=== PATIENT | male | born 1980 | race Caucasian/White ===

== ENCOUNTER 2016-08-25 12:57 | Emergency (ER) | payer SELFPAY ==
[2016-08-25 12:58] VITALS: BMI 29.6
[2016-08-25 13:14] VITALS: TEMP 97.7; O2SAT 98
[2016-08-25] MEDS ORDERED: Sodium Chloride 0.9% 1,000 ML IV ONE (14:29)
--- NOTE | 2016-08-25 14:29 | C.PDOC ---
History Of Present Illness The patient, a 35 y/o male, presents to the ED for evaluation of epigastric abdominal pain which began earlier today. Patient states his pain radiates to his chest and describes it as a burning sensation. Patient also reports experiencing multiple episodes of vomiting this morning. As per family member at bedside, patient has been drinking heavily for the past week. Patient admits to recent alcohol intake and is requesting detox. Patient denies any other substance abuse. Otherwise, he denies shortness of breath, back pain, and suicidal/homicidal ideation at this time. Time Seen by Provider: 08/25/16 14:18 Chief Complaint (Nursing): Chest Pain History Per: Patient History/Exam Limitations: no limitations Onset/Duration Of Symptoms: Hrs Current Symptoms Are (Timing): Still Present Additional History Per: Patient Past Medical History Reviewed: Historical Data, Nursing Documentation, Vital Signs Vital Signs: Last Vital Signs Temp 97.7 F 08/25/16 13:10 Pulse 94 H 08/25/16 16:57 Resp 18 08/25/16 16:57 BP 120/79 08/25/16 16:57 Pulse Ox 98 08/25/16 17:50 - Medical History PMH: HTN Denies: Diabetes, Hepatitis, HIV, Chronic Kidney Disease, Seizures, Sexually Transmitted Disease Surgical History: No Surg Hx - [facility] Procedures DETOXIFICATION SERVICES FOR SUBSTANCE ABUSE TREATMENT (01/20/16) 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 Cardiovascular: Positive for: Chest Pain Respiratory: Negative for: Shortness of Breath Gastrointestinal: Positive for: Vomiting, Abdominal Pain (epigastric ) Musculoskeletal: Negative for: Back Pain Psych: Positive for: Other (+alcohol intake ). Negative for: Suicidal ideation Physical Exam - Physical Exam Appears: Non-toxic, No Acute Distress Skin: Normal Color, Warm, Dry Head: Atraumatic, Normacephalic Eye(s): bilateral: Normal Inspection Oral Mucosa: Moist, Other (+alcohol on breath ) Neck: Normal ROM, Supple Chest: Symmetrical, No Deformity, No Tenderness Cardiovascular: Rhythm Regular, No Murmur Respiratory: Normal Breath Sounds, No Rales, No Rhonchi, No Wheezing Gastrointestinal/Abdominal: Tenderness (mild, epigastric ), No Guarding, No Rebound Back: Normal Inspection, No Vertebral Tenderness, No Paraspinal Tenderness Extremity: Normal ROM, Capillary Refill (less than 2 seconds ) Neurological/Psych: Oriented x3, Normal Speech, Normal Cognition Gait: Steady ED Course And Treatment - Laboratory Results Result Diagrams: 08/25/16 15:00 08/25/16 15:00 ECG Rhythm: Sinus Rhythm Interpretation Of ECG: Normal Sinus Rhythm at rate 82bpm. Left axis deviation. Rate From EC O2 Sat by Pulse Oximetry: 98 (on RA) Pulse Ox Interpretation: Normal Medical Decision Making Medical Decision Makin y.o male complains of nausea, vomiting ,epigastric pain radiates to chest. Requesting alcohol detox Plan: * labs * EKG * reassess and disposition Progress: Labs and EKG were ordered and reviewed. Patient received Pepcid IV, Zofran IV, and IV fluids. Contact Laura who states there are no detox beds available. Prior records reviewed patient was seen 05/16/16 for similar complaint of chest pain and alcohol intoxication, patient was observed for 1 night, negative trending cardiac enzymes Patient remained stable and in no acute distress, no signs of withdrawal. Patient was able to tolerate po. Patient to be discharged and given outpatient information Disposition Counseled Patient/Family Regarding: Need For Followup, Rx Given - Disposition Disposition: HOME/ ROUTINE Disposition Time: 16:50 Condition: GOOD Additional Instructions: Por favor llame al [phone] o al [phone] para informarse sobre nuestra disponibilidad de Detox, puede hablar con el coordinador Laura Regrese al servicio de urgencias en cualquier momento si los sntomas persisten o empeoran. Instructions: Alcohol Intoxication (DC) Print Language: MALTESE - POA Present On Arrival: None - Clinical Impression Clinical Impression: Alcohol abuse, Alcoholic gastritis - PA / WEIGHER AND CHARGER / Resident Statement MD/DO has reviewed & agrees with the documentation as recorded. - Scribe Statement The provider has reviewed the documentation as recorded by the Scribe (Sharon Kapoor) All medical record entries made by the Scribe were at my direction and personally dictated by me. I have reviewed the chart and agree that the record accurately reflects my personal performance of the history, physical exam, medical decision making, and the department course for this patient. I have also personally directed, reviewed, and agree with the discharge instructions and disposition.
[2016-08-25] MEDS ORDERED: Sodium Chloride 0.9% 1,000 ML ONE (15:02)
[2016-08-25 15:09] LABS: BASO % 0.5 % (0.0-2.0); EOS % 0.5 % (0.0-4.0); HEMATOCRIT 46.3 % (35.0-51.0); LYMPH # 2.5 K/uL (1.0-4.3); LYMPH % 40.3 % (20.0-40.0); MEAN CELL VOLUME 91.5 fL (80.0-94.0); MEAN CORPUSCULAR HGB CONC 33.9 g/dL (33.0-37.0); MEAN PLATELET VOLUME 8.6 fL (7.2-11.7); MONO # 0.2 K/uL (0.0-0.8); MONO % 3.6 % (0.0-10.0); NRBC % 0.1 % (0.0-2.0); RED CELL DISTRIBUTION WIDTH 13.8 % (11.5-14.5); WHITE BLOOD COUNT 6.1 K/uL (4.8-10.8)
[2016-08-25 15:11] LABS: URINE BILIRUBIN NEGATIVE (NEGATIVE); URINE BLOOD NEGATIVE (NEGATIVE); URINE COLOR Yellow (YELLOW); URINE GLUCOSE (UA) NORMAL (Normal); URINE KETONE TRACE mg/dL (NEGATIVE); URINE LEUKOCYTE ESTERASE NEG Leu/uL (Negative); URINE PROTEIN NEGATIVE (NEGATIVE); URINE UROBILINOGEN NORMAL mg/dL (0.2-1.0); WBC URINE 1 /hpf (0-5)
[2016-08-25 15:18] LABS: CHLORIDE 104 mmol/L (98-107)
[2016-08-25 15:19] LABS: SODIUM 145 mmol/L (132-148)
[2016-08-25 15:20] LABS: POTASSIUM 4.3 mmol/L (3.6-5.2)
[2016-08-25 15:22] LABS: ALB/GLOB RATIO 1.5 (1.0-2.1); ALKALINE PHOSPHATASE 63 U/L (38-126); ALT/SGPT 61 U/L (21-72); AST/SGOT 66 U/L (17-59); BLOOD UREA NITROGEN 13 mg/dL (9-20); CARBON DIOXIDE 27 mmol/L (22-30); GFR AFRICAN-AMERICAN > 60; GLUCOSE,RANDOM 122 mg/dL (75-110); TOTAL PROTEIN 7.6 g/dL (6.3-8.3)
[2016-08-25 15:23] LABS: CALCIUM 8.3 mg/dl (8.6-10.4)
[2016-08-25 17:00] VITALS: BP 120/79; PULSE 94; RESP 18
--- NOTE | 2016-08-28 18:43 | CARD ---
APPROVED REPORT EKG Measurement Heart [id number] <Conclusion> Normal sinus rhythm Left axis deviation Abnormal ECG
== END 2016-08-25 16:59 | disposition home or self-care (01) ==
LOC: C.ER 12:57
DX: K29.20 Alcoholic gastritis without bleeding (principal); F10.10 Alcohol abuse, uncomplicated
CPT/HCPCS: 80053; 81001; 85025; 93005; 96361; 96374; 96375; 99285; G0480; J2405; J7040

== ENCOUNTER 2018-05-10 14:54 | Emergency (ER) | payer OTHER ==
[2018-05-10 15:09] VITALS: BMI 29.7
--- NOTE | 2018-05-10 15:44 | C.PDOC ---
History Of Present Illness 37 years old male with PMHx of alcohol abuse presents to ED for complaints of chest pain and depression. Patient has had multiple visits in this ER for similar prior complaints. Patient states he cannot characterize his pain. Denies trauma or any other complaints at this time. Patient is sleeping upon assessment but is easily arousable. Time Seen by Provider: 05/10/18 15:27 Chief Complaint (Nursing): Psychiatric Evaluation History Per: Patient History/Exam Limitations: no limitations Onset/Duration Of Symptoms: Hrs Current Symptoms Are (Timing): Still Present Suicide/Self Injury Attempted (Context): None Modifying Factor(s): Alcohol Associated Symptoms: denies: Suicidal Thoughts, Suicidal Plan Involuntary Hold By: None Recent travel outside of the [place]: No Past Medical History Reviewed: Historical Data, Nursing Documentation, Vital Signs Vital Signs: Last Vital Signs Temp 98.2 F 05/10/18 15:11 Pulse 85 05/10/18 15:11 Resp 16 05/10/18 15:11 BP 153/87 H 05/10/18 15:11 Pulse Ox 96 05/10/18 15:11 - Medical History PMH: Depression, HTN - [facility] Procedures DETOXIFICATION SERVICES FOR SUBSTANCE ABUSE TREATMENT (10/02/16) 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, PSYCHOEDUCATION (01/20/16) GROUP PSYCHOTHERAPY (09/29/15) MEDICATION MANAGEMENT (10/02/16) Family History: States: Unknown Family Hx - Social History Hx Tobacco Use: Yes Hx Alcohol Use: Yes (QUIT) Hx Substance Use: No - Immunization History Hx Tetanus Toxoid Vaccination: No Hx Influenza Vaccination: No Hx Pneumococcal Vaccination: No Review Of Systems Constitutional: Negative for: Fever, Chills Cardiovascular: Positive for: Chest Pain Gastrointestinal: Negative for: Nausea, Vomiting, Abdominal Pain, Diarrhea Neurological: Negative for: Weakness, Numbness Psych: Positive for: Depression Physical Exam - Physical Exam Appears: Non-toxic, No Acute Distress Skin: Normal Color, Warm, Dry, No Rash Head: Atraumatic, Normacephalic Eye(s): bilateral: Normal Inspection, PERRL, EOMI Oral Mucosa: Moist Neck: Normal ROM, Supple Chest: Symmetrical, No Tenderness Cardiovascular: Rhythm Regular, No Friction Rub Respiratory: Normal Breath Sounds, No Rales, No Rhonchi, No Wheezing Extremity: Normal ROM Extremity: Bilateral: Atraumatic, Normal Color And Temperature, Normal ROM Neurological/Psych: Oriented x3, Normal Speech Gait: Steady ED Course And Treatment - Laboratory Results Result Diagrams: 05/10/18 15:50 05/10/18 15:50 ECG Rhythm: Sinus Rhythm ECG Interpretation: Normal Interpretation Of ECG: Normal sinus rhythm at 74bpm. No ST/T wave changes. Rate From EC O2 Sat by Pulse Oximetry: 96 (RA) Pulse Ox Interpretation: Normal - Other Rad CXR X-Ray: Viewed By Me, Read By Radiologist Interpretation: HISTORY: chest pain. COMPARISON: Chest x-ray performed 01/19/16. TECHNIQUE: Chest PA and lateral. FINDINGS: LUNGS: No focal consolidation. Please note that chest x-ray has limited sensitivity for the detection of pulmonary masses. PLEURA: No significant pleural effusion identified. No definite pneumothorax . CARDIOVASCULAR: Heart size appears within limits. No atherosclerotic calcification present. OSSEOUS STRUCTURES: No acute osseous abnormality identified. VISUALIZED UPPER ABDOMEN: Unremarkable. OTHER FINDINGS: None. IMPRESSION: No focal consolidation. Medical Decision Making Medical Decision Making: etoh abuse. Plan: * EKG * Blood work * CXR * Urinalysis observed 7 hoursl clincally sober eating food ambulating. to take pt home. seen by crisis. requests outpt tx. Disposition - Disposition Disposition: HOME/ ROUTINE Disposition Time: 21:00 Condition: STABLE Additional Instructions: retrun to er with worsening symptoms or concerns. Instructions: Depression, Alcohol Abuse and Alcoholism (DC) Forms: [facility] (Peruvian) - Clinical Impression Clinical Impression: Chest pain, Alcohol abuse, Depression - Scribe Statement The provider has reviewed the documentation as recorded by the Rosa Nava All medical record entries made by the Lalitaibhayes were at my direction and personally dictated by me. I have reviewed the chart and agree that the record accurately reflects my personal performance of the history, physical exam, medical decision making, and the department course for this patient. I have also personally directed, reviewed, and agree with the discharge instructions and di sposition.
[2018-05-10 15:59] LABS: BASO % 0.9 % (0.0-2.0); EOS % 0.3 % (0.0-4.0); HEMOGLOBIN 15.9 g/dL (12.0-18.0); LYMPH # 1.4 K/uL (1.0-4.3); LYMPH % 29.3 % (20.0-40.0); MEAN CORPUSCULAR HGB CONC 34.2 g/dL (33.0-37.0); MEAN PLATELET VOLUME 7.9 fL (7.2-11.7); MONO # 0.3 K/uL (0.0-0.8); MONO % 6.3 % (0.0-10.0); NEUT % 63.2 % (50.0-75.0); NRBC % 0.1 % (0.0-2.0); RBC 4.53 Mil/uL (4.40-5.90); RED CELL DISTRIBUTION WIDTH 13.8 % (11.5-14.5); WHITE BLOOD COUNT 4.8 K/uL (4.8-10.8)
[2018-05-10 16:00] LABS: MEAN CELL VOLUME 102.5 fL (80.0-94.0)
[2018-05-10 16:09] LABS: INR 1.4; PROTHROMBIN TIME 15.1 SECONDS (9.7-12.2)
[2018-05-10 16:22] LABS: ALB/GLOB RATIO 1.6 (1.0-2.1); ALBUMIN 5.1 g/dL (3.5-5.0); ALT/SGPT 73 U/L (21-72); AST/SGOT 87 U/L (17-59); BLOOD UREA NITROGEN 10 mg/dL (9-20); CALCIUM 9.3 mg/dl (8.6-10.4); GFR NON-AFRICAN AMERICAN > 60
[2018-05-10 16:24] LABS: ACETAMINOPHEN < 10.0 ug/mL (10.0-30.0); SALICYLATE < 1.0 mg/dL 1
[2018-05-10 17:16] LABS: BARBITURATES, UR NEGATIVE (NEGATIVE); BENZODIAZEPINES, UR NEGATIVE (NEGATIVE); OPIATES, UR NEGATIVE (NEGATIVE); PHENCYCLIDINE, UR NEGATIVE (NEGATIVE)
[2018-05-10 17:20] LABS: URINE BILIRUBIN NEGATIVE (NEGATIVE); URINE BLOOD NEGATIVE (NEGATIVE); URINE CLARITY Clear (Clear); URINE COLOR Yellow (YELLOW); URINE GLUCOSE (UA) NORMAL (Normal); URINE LEUKOCYTE ESTERASE NEG Leu/uL (Negative); URINE PROTEIN 2+ mg/dL (NEGATIVE); URINE UROBILINOGEN NORMAL mg/dL (0.2-1.0)
--- NOTE | 2018-05-10 17:38 | RAD ---
HISTORY: chest pain COMPARISON: Chest x-ray performed 01/19/16 TECHNIQUE: Chest PA and lateral FINDINGS: LUNGS: No focal consolidation. Please note that chest x-ray has limited sensitivity for the detection of pulmonary masses. PLEURA: No significant pleural effusion identified. No definite pneumothorax . CARDIOVASCULAR: Heart size appears within limits. No atherosclerotic calcification present. OSSEOUS STRUCTURES: No acute osseous abnormality identified. VISUALIZED UPPER ABDOMEN: Unremarkable. OTHER FINDINGS: None. IMPRESSION: No focal consolidation.
[2018-05-10 21:47] VITALS: BP 142/79; PULSE 82; RESP 20; TEMP 98.1; O2SAT 96
--- NOTE | 2018-05-11 11:59 | CARD ---
APPROVED REPORT Date of service: 05/10/2018 EKG Measurement Heart [id number] <Conclusion> Normal sinus rhythm Left axis deviation Pulmonary disease pattern Abnormal ECG
== END 2018-05-10 21:47 | disposition home or self-care (01) ==
LOC: C.ER 14:54
DX: R07.9 Chest pain, unspecified (principal); F32.9 Major depressive disorder, single episode, unspecified; F10.10 Alcohol abuse, uncomplicated; Y90.8 Blood alcohol level of 240 mg/100 ml or more